=== PATIENT | female | born 1975 | race Caucasian/White ===

== ENCOUNTER 2021-08-10 13:27 | Outpatient (CLI) | payer SELFPAY ==
--- NOTE | 2021-08-10 12:00 | EMB_PTH ---
PATIENT: MELISSA LOVE LOC: [facility] U#:[id number] AGE/SX: 46/F ROOM: RE08/10/[address]: Dr. Fito Cleary MD : [id number] BED: DIS: 08/10/2021 SPEC #: [id number] RECD: 08/10/21 14:31 STATUS: TYLER LARISA #: [id number] DANY: 08/10/21 12:[address]: Fito Cleary DEPT: SURGICAL PATHOLOGY RECD BY: Heather Hutchinson Tissues: Endometrium, NOS Procedures: Surgery Specimen Level IV HEADER OPERATION: Endometrial biopsy PRE-OP DIAGNOSIS: N92.1 TISSUE SUBMITTED: Endometrial biopsy MICROSCOPIC DIAGNOSIS Endometrium, biopsy: Secretory endometrium. AM:david 08/12/2021 MICROSCOPIC DESCRIPTION Slides are reviewed. GROSS DESCRIPTION Received in fixative is one container labeled with the patient's name and designated endometrial biopsy. The specimen consists of multiple irregular fragments of light bello soft tissue that in aggregate measure 3 x 2.5 x 0.1 cm. The specimen is totally submitted in one cassette. / AM:david 08/11/2021 TC:5 CPT: 47838
[2021-08-15 14:32] LABS: HPV Reflexed? NOT INDICATED
== END 2021-08-10 23:59 | disposition short-term general hospital (02) ==
LOC: LABSPEC 13:30
PROVIDERS: Visit Provider Obstetrics & Gynecology
DX: Z12.4 Encounter for screening for malignant neoplasm of cervix (principal)
CPT/HCPCS: 88175; 88305; G0145